=== PATIENT | male | born 1985 | race Caucasian/White ===

== ENCOUNTER 2025-03-02 09:30 | Outpatient (AMB) | payer BC, SELFPAY ==
--- OUTSIDE RECORDS SUMMARY | 2025-03-01 08:30 | XMS_ITS | Encounter Summary ---
Author Organization [facility] Address [address] [place] [address] Care Team Providers Care Deputy Jailer Name Role Phone Ryan Merritt MD Primary Care Provider [phone] Reason for Visit * Reason Comments Consult Pain of the cervical spine Encounter Details Date Type Department Care Team (Latest Contact Info) Description 03/01/2025 8:30 AM EDT Office Visit [facility] Orthopedic Surgery [address] [address] Joe Hinkle MD [address] [place] [address] Cervical radiculopathy (Primary Dx) Social History Tobacco Use Types Packs/Day Years Used Date Smoking Tobacco: Former Cigarettes 1 2014 Passive Smoke Exposure: Past Smokeless Tobacco: Never Alcohol Use Standard Drinks/Week Comments Yes 1 (1 standard drink = 0.6 oz pur e alcohol) 1 drink per week at the most AUDIT-C Answer Date Recorded Q1: How often do you have a drink containing alc ohol? Monthly or less 03/13/2021 Q2: How many drinks containi ng alcohol do you have on a typical day when you are drinking? 1 or 2 03/13/2021 Frequency of Binge Drinking Not on file 02/21 PHQ-2 Answer Date Recorded Patient Health Questionnaire-2 Score 1 05/18/2024 PHQ-9 Answer Date Recorded PHQ-9 Score 1 05/18/2024 Intimate Partner Violence Answer Date R ecorded Fear of Current or Ex-Partner Not on file Emotionally Abused Not on file 02/02/2023 Physically Abused Not on file 02/02/2023 Sexually Abused Not on file 02/02/2023 Feel Safe at Home Not on file 02/02/2023 Sex and Gender Information Value Date Recorded Sex Assigned at Male 06/03/2021 8:41 AM EST Legal Sex Male 11:16 PM EDT Gender Identity Male 06/03/2021 8:41 AM EST Sexual Orientation Straight 06/03/2021 8: 41 AM EST Occupation Industry Job Start Date Job End Date 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 Clarifications and additional information below. History of Present Illness (provider obtained) The patient presents for evaluation of right arm pain. Right Arm Pain - He reports experiencing pain in his right arm, which he believes originates from his neck. - The discomfort varies from a dull ache to a tingling sensation that intensifies over time, eventually manifesting as a burning sensation and complete numbness. - He also experiences trigger finger and significant pain in the right pectoral and trapezius muscles. - The intensity of the pain fluctuates, sometimes reaching excruciating levels. - The onset of these symptoms was on 01/05/2025, following a work trip where he suspects he may have slept awkwardly on his neck, leading to stiffness that progressively worsened. - He has not yet tried injectable steroids. - He has been managing the pain with gabapentin 300 mg three times daily and Motrin for the past 7 weeks, but without significant relief. - He is concerned about the long-term use of Motrin twice daily and is seeking alternative pain management options. Previous Treatments - He has attempted various treatments including acupuncture, physical therapy, managed care liaison, and the application of ice and heat. - He has also tried cervical traction devices and continues to see a chiropractor weekly. - He recalls a similar episode of neck pain in 2023 and another instance in 2018 when his hands would lock up during work, causing severe pain. - He notes that his condition seems to have progressively worsened over time. He is not currently taking any blood thinners. 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 Objective There were no vitals filed for this visit. Estimated body mass index is 34.3 kg/m?? as calculated from the following: Height as of 05/18/24: 5' 7 (1.702 m). Weight as of 01/17/25: 219 lb (99.3 kg). Wt Readings from Last 3 Encounters: 01/17/25 219 lb (99.3 kg) 11/09/24 220 lb 8 oz (100 kg) 05/18/24 219 lb 12.8 oz (99.7 kg) Physical Exam General Appearance: Well-nourished, no acute distress Psych: Normal Affect Neurological: Musculoskeletal: Right arm: Normal strength Spine: Data Reviewed Data Reviewed (tests, documents, or independent historians) Imaging - MRI of the neck: Narrowing at C6-7, right greater than left. - X-ray of the neck: Disc degeneration at C6-7. Images reviewed personally. Cervical x-ray is essentially normal with a little bit of generative disc disease. MRI done at [facility] shows bilateral foraminal stenosis at C6-7 I would say is moderate to severe. The remainder of his spine looks reasonably good Lab Results Component Value Date A1C 4.8 02/16/2023 Diagnoses & Orders ICD-10-CM 1. Cervical radiculopathy M54.12 REQUEST FOR PHYSIATRY PROCEDURE (FOR PHYSIATRY ONLY) Assessment & Plan 1. Cervical radiculopathy: - Symptoms align with MRI findings, indicating cervical radiculopathy at C6-7, with right-sided impingement greater than left - Various treatments tried without significant relief: acupuncture, physical therapy, managed care liaison, ice, heat, gabapentin, NSAIDs - Three treatment options discussed: conservative management, steroid injection, surgical intervention (ACDF) versus disc replacement. I told him I typically do an anterior cervical discectomy and fusions. - Patient prefers to avoid surgery if possible - Steroid injection will be arranged to see if it provides relief - If no improvement within 3 weeks post-injection, surgery will be considered - Cervical traction devices can continue to be used - Heavy lifting should be avoided for 8 weeks post-surgery if necessary - Increasing gabapentin dosage in consultation with primary care provider discussed - Recovery process explained: return to work in about 3 weeks, resume gym activities with light weights after 4-6 weeks, avoid upper extremity exercises for 6 weeks Future Appointments Date Time Provider Department Phone 09/21/25 8:15 AM Carolyn Stearns NP [address] [facility] [phone] * Ruby Marin - 03/01/2025 8:30 AM EDT Rooming Tasks AI Scribe Use Patient Consent: Patient CONSENTS to be recorded by the AI Scribe system. Piano Teacher not necessary for this visit. No exam or procedure involving the breast, genital or rectal area is anticipated. Chief Complaint 39 y.o. male presents with: Consult Pain of the cervical spine documented in this encounter Plan of Treatment Upcoming Encounters Date Type Department Care Team (Latest Contact Info) Description 09/21/2025 8:15 AM EDT CPE - Comprehensive Physical Exam [address] [facility] [address] [place] [id number] Carolyn Stearns NP [address] [place] [address] cpe documented as of this encounter Goals Goal Patient Goal Type Associated Problems Recent Progress Patient-Stated? Author Quit smoking / using tobacco Lifestyle Kandy Graham Note: Smoking can cause cancer, heart attacks, hardening of the arteries, bronchitis, emphysema, cough, shortness of breath, wrinkles, and premature aging and premature births. Some benefits of quitting smoking begin right away. Your risk of heart disease begins to decrease as soon as you quit. Your general health may also start to improve immediately because you are not irritating your lungs and more oxygen gets to your body organs. Your blood circulation is likely to get better. Other benefits may include fewer colds and lung infections as well as reduced risk of high blood pressure, stroke, and cancer. Interested in quitting smoking? Discuss medication options with your provider or contact the Quit To Win program at . Any insurance accepted. Quit smoking resources-http://[email or web address] documented as of this encounter Visit Diagnoses Diagnosis Cervical radiculopathy- Primary Brachial neuritis or radiculitis nos documented in this encounter Care Teams Deputy Jailer Relationship Specialty Start Date End Date Ryan Merritt MD [address] [place] [address] PCP - General 02/11/25 documented as of this encounter
--- NOTE | 2025-03-02 09:59 | HO.SPINEOV ---
Intake Visit Reasons: neck pain radiating to arm Intake Note: Mr. Macias is here today c/o neck pain that radiates to the right arm and upper back. Environmental Health Safety Manager Required: No Allergies No Known Allergies Allergy (Verified 03/02/25 10:04) Assessment & Plan Assessment & Plan (1) Cervical radiculopathy: Code(s): M54.12 - Radiculopathy, cervical region Category: Medical Plan Isaiah is a pleasant 39-year-old male who is self-referred to our office for neck pain and shooting pain into his right upper extremity. He reports this 1st began back in 2019, but was fairly manageable until about 7-8 weeks ago and he states that his pain began to severely worsen. He denies any known inciting incident. When describing the pain he states that it starts in his posterior neck shoots in his right shoulder down the dorsal surface of his right arm terminating in his hand. He states that the pain in the past has sharp down into his right pinky, however today stating that primarily is affecting his right index finger. He describes the pain as a zapping sensation that will burn all the way down his arm many times throughout the day. He actually can incite this pain by turning his head to the right-hand side in moving his arm in his in a certain motion. He reports the pain is now to the point where his severely debilitating him in affecting his ADLs significantly. He is unable to sleep through the night and wakes up multiple times in pain. He is restricting when he is able to do for meaningful activities. He is no longer able to go to the gym or exercise as a result of the pain. He states that simple activities like driving or using his mouse at the computer while working will exacerbate his pain. He denies any issues with dexterity, balance, or bowel/bladder incontinence. He is currently completing a full 8 weeks of physical therapy. He has been to the chiropractor and attempted acupuncture for this issue, however these therapies without provided longstanding relief. He has attempted a plethora of oyjc-wum-yktpoyl medications, patches, and creams without significant symptom relief. In fact he has taken ibuprofen daily for the past 7-8 weeks in an effort to mitigate the pain. He is currently prescribed gabapentin to help mitigate some of his symptoms. PMH: The patient denies any current medical diagnoses or previous history of surgeries. Social hx: The patient does not smoke, reports no substance use. Medications: Gabapentin, ibuprofen. Allergies: NKDA. Physical exam: The patient has 4/5 strength with right-sided triceps testing. The rest of his upper and lower extremity strength is 5/5. He ambulates well with a non spastic and nonantalgic gait. He is able to rise from a seated position without difficulty and gets up onto the examination table without issue. He reports no sensational deficits to light touch during examination. His reflexes are 2+ intact. (-) clonus, (-) Brooke's, (-) bilateral straight leg raise. Imaging review: MRI of the cervical spine completed at outside hospital shows moderate central canal and severe right-sided foraminal stenosis at C6-7. There is also mild-moderate left-sided foraminal stenosis at this level. There appears to be a caudally migrated posterior disc herniation. Impression: Isaiah is a pleasant 39-year-old male who comes in today for evaluation of neck pain and shooting pain into his right upper extremity. This has been ongoing for many years, but has significantly exacerbated over the course of the last 7-8 weeks. I believe his pain is likely being caused by the severe right-sided foraminal stenosis seen at C6-7. He reported that he was previously evaluated by an orthopedic surgeon for this issue, who recommended cervical spine fusion at this level. I believe that due to the patient's age he would be a good candidate for artificial disc at C6-7 to avoid fusion. The patient reports that the orthopedic surgeon who saw him previously already has ordered a series of injections for his neck. I encouraged him to follow through with these, and attempt to obtain symptom relief. He will come and see us again in the office if the injections do not provide lasting relief. Thank you for allowing us to care for your patient. The total time spent with this visit with this patient was 45 minutes reviewing history, physical exam, MRI imaging review, and implementation of treatment plan or further diagnostic testing Michael Mar MD,PhD [facility] Coding Level of Care Code New Pt Level 4 (33925) Diagnoses Cervical radiculopathy M54.12
--- OUTSIDE RECORDS SUMMARY | 2025-03-02 11:03 | XMS_ITS | Encounter Summary ---
Author Organization [facility] Address [address] [place] [address] Care Team Providers Care Neuropsychology Division Chief Name Role Phone Ryan Merritt MD Primary Care Provider [phone] Encounter Details Date Type Department Care Team (Late st Contact Info) Description 03/02/[address] 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 [facility] [address] [place] [phone] Carolyn Stearns NP [address] [place] [address] cpe documented as of this encounter Goals [...] at . Any insurance accepted. Quit smoking resources-[email or web address] documented as of this encounter Visit Diagnoses Diagnosis Other hyperlipidemia Impaired fasting glucose Immunity status testing Antibody response examination Need for hepatitis C screening test Special screening examination for other specified viral diseases Need for qayxlns-ectuh-scasqip (MMR) vaccine Need for prophylactic vaccination with cxuooxk-hwpbw-wimijot (MMR) vaccine documented in this encounter Care Teams Neuropsychology Division Chief Relationship Specialty Start Date End Date Ryan Merritt MD [address] [place] [address] PCP - General 02/11/25 documented as of this encounter
--- OUTSIDE RECORDS SUMMARY | 2025-03-02 11:03 | XMS_ITS | Encounter Summary ---
Author Organization [facility] Address [address] [place] [address] Care Team Providers Care Instrument And Controls Technician Name Role Phone Aranza Darling MD Primary Care Provider [phone] Ryan Merritt MD Primary Care Provider [phone] Reason for Visit * Reason Comments Rehab Plan Of Care Order Encounter Details Date Type Department Care Team (Late st Contact Info) Description 09/28/2020 Orders Only [facility] [address] [place] [phone] Vitaliy Limon, PT [address] [place] [address] Social History Tobacco Use Types Packs/Day Years Used Date Smoking Tobacco: Former Cigarettes 1 2014 Smokeless Tobacco: Never Alcohol Use Standard Drinks/Week Comments Yes 1 (1 standard drink = 0.6 oz pur e alcohol) AUDIT-C Answer Date Recorded Frequency of Alcohol Consumption Monthly or less 08/01/2019 Average Number of Drinks 1 or 2 020 Frequency of Binge Drinking Not on file 07/23 PHQ-2 Answer Date Recorded PHQ-2 Score 2 08/01/2019 Sex and Gender Information Value Date Recorded Sex Assigned at Male 06/03/2021 8:41 AM EST Legal Sex Male 11:16 PM EDT Gender Identity Male 06/03/2021 8:41 AM EST Sexual Orientation Straight 06/03/2021 8: 41 AM EST Occupation Industry Job Start Date Job End Date 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 No / Unsure 09/25/2020 4:00 PM EDT documented as of this encounter Plan of Treatment Upcoming Encounters Date Type Department Care Team (Latest Contact Info) Description 09/21/2025 8:15 AM EDT CPE - Comprehensive Physical Exam [facility] [address] [place] [address] Carolyn Stearns NP [address] [place] [address] cpe documented as of this encounter Goals [...] at . Any insurance accepted. Quit smoking resources-[email or web address] documented as of this encounter Visit Diagnoses Diagnosis Sprain of anterior talofibular ligament of right ankle, subsequent encounter Chronic pain of right ankle documented in this encounter Care Teams Instrument And Controls Technician Relationship Specialty Start Date End Date Aranza Darling MD [address] [place] [address] PCP - General Family Medicine 01/22/18 02/10/25 Ryan Merritt MD [address] [place] [address] PCP - General 02/11/25 documented as of this encounter
--- OUTSIDE RECORDS SUMMARY | 2025-03-02 11:03 | XMS_ITS | Encounter Summary ---
Author Organization [facility] Address [address] [place] [address] Care Team Providers Care Crisis Intervention Specialist Name Role Phone Aranza Darling MD Primary Care Provider [phone] Ryan Merritt MD Primary Care Provider Encounter Details Date Type Department Care Team (Late st Contact Info) Description 07/25/[address] 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 Herzio message sent. documented in this encounter Plan of Treatment Upcoming Encounters Date Type Department Care Team (Latest Contact Info) Description 09/21/2025 8:15 AM EDT CPE - Comprehensive Physical Exam [address] [facility] [address] [place] [phone] Carolyn Stearns NP [address] [place] [address] cpe documented as of this encounter Goals [...] at . Any insurance accepted. Quit smoking resources-[email or web address] documented as of this encounter Procedures * Due to [place] law, this organization might not be sharing negative HIV tests. Procedure Name Priority Date/Time Associated Diagnosis Comments CBC INCLUDES DIFFERENTIAL AND PLATELET COUNT Routine 07/25/2019 12:04 PM EST Syncope, unspecified syncope type VENIPUNCTURE Routine 07/25/2019 12:04 PM EST Syncope, unspecified syncope type documented in this encounter Results * Due to [place] [employer]GC law, this organization might not be sharing negative HIV tests. * CBC INCLUDES DIFFERENTIAL AND PLATELET COUNT (07/25/2019 12:04 PM EST) WBC 7.5 3.8 - 10.8 Thousand/u L [facility] RBC 4.71 4.20 - 5.80 Million/uL [facility] Hemoglobin 14.3 13.2 - 17.1 g/dL [facility] Hematocrit 41.2 38.5 - 50.0 % [facility] MCV 87.5 80.0 - 100.0 fL [facility] MCH 30.4 27.0 - 33.0 pg [facility] MCHC 34.7 32.0 - 36.0 g/dL [facility] RDW 12.6 11.0 - 15.0 % [facility] PLT 233 140 - 400 Thousand/u L [facility] MPV 9.5 7.5 - 12.5 fL [facility] Neutrophils # 4778 1500 - 7800 cells/uL [facility] Lymphocytes # 2123 850 - 3900 cells/uL [facility] Monocytes # 548 200 - 950 cells/uL [facility] Eosinophils # 23 15 - 500 cells/uL [facility] Basophils # 30 0 - 200 cells/uL [facility] Neutrophils % 63.7 % [facility] Lymphocytes % 28.3 % [facility] Monocytes % 7.3 % [facility] Eosinophils % 0.3 % [facility] Basophils % 0.4 % [facility] 07/25/2019 12:0 4 PM EST 07/25/2019 10:14 PM EST Narrative Resulting Agency Comment [id number] us Aranza Darling MD LAB SAME DAY RESULT Final Result Performing Organization Address City/State/[facility] Co de Phone Number [facility] [address] [place] [address] * BASIC METABOLIC PANEL WITH (GFR) (07/25/2019 12:04 PM EST) Pathologist [facility] Glucose 82 65 - 99 mg/dL [facility] Comment:[facility] Urea Nitrogen Blood (BUN) 12 7 - 25 mg/dL [facility] Creatinine 0.89 0.60 - 1.35 mg/dL [facility] EGFR 111 > OR = 60 mL/min/1. 73m2 [facility] GFR () 128 > OR = 60 mL/min/1. 73m2 [facility] BUN/Creatinine Ratio NOT APPLICABLE 6 - 22 (calc) [facility] Sodium 140 135 - 146 mmol/L [facility] Potassium 4.2 3.5 - 5.3 mmol/L [facility] Chloride 105 98 - 110 mmol/L [facility] Carbon dioxide 28 20 - 32 mmol/L [facility] Calcium 9.1 8.6 - 10.3 mg/dL [facility] 07/25/2019 12:0 4 PM EST 07/25/2019 10:14 PM EST Narrative [facility] - 07/26/2019 3:21 AM EST Please note that this estimated GFR does not include an adjustment for the patient's height or weight, and can therefore, be viewed as reliable only for patients with heights between 60 and 72 . More precise quantification using a 24-hour urine sample or height-based algorithm is recommended for patients outside of this range of height and for those individuals with more precise needs for GFR calculation. Resulting Agency Comment [id number] us Aranza Darling MD LABORATORY Final Resu lt [facility] [address] [place] [address] documented in this encounter Visit Diagnoses Diagnosis Syncope, unspecified syncope type documented in this encounter Care Teams Crisis Intervention Specialist Relationship Specialty Start Date End Date Aranza Darling MD [address] [place] [address] PCP - General Family Medicine 01/22/18 02/10/25 Ryan Merritt MD [address] [place] [address] PCP - General 02/11/25 documented as of this encounter
--- OUTSIDE RECORDS SUMMARY | 2025-03-02 11:03 | XMS_ITS | Clinical Summary ---
Author Organization [facility] Address [address] [place] [address] Care Team Providers Care Shingle Catcher Name Role Phone Ryan Merritt MD Primary Care Provider [phone] Allergies No known active allergies Medications * This document contains information received from the source organization and may not represent a complete record from that organization. Multiple Vitamin (MULTIVITAMINS) Cap Take 1 capsule by mouth daily. Active [place]-3 Fatty Acids (FISH OIL) 1000 MG Cap Take 800 mg by mouth daily. Active Bacillus Coagulans-Inuli n (Probiotic) 1-250 BILLION-MG Cap Take by mouth 1 (one) time each day. Active Albuterol (PROVENTIL HFA;VENTOLIN HFA) 90 mcg/ACT inhaler INHALE 2 PUFFS BY MOUTH EVERY 4 HOURS NEEDED FOR SHORTNESS OF BREATH FOR 7 DAYS 06/14/20 24 Active CREATINE MONOHYDRATE OR Take 5 mg by mouth 1 (one) time each day. 06/22/19 24 Active Gabapentin (NEURONTIN) 300 MG capsuleIndicati ons:Neck pain Take one capsule (300 mg total) by mouth 3 (three) times a day. 90 capsule 1 02/28/20 25 Active predniSONE (DELTASONE) 10 MG tabletIndicatio ns:Acute strain of neck muscle, subsequent encounter Take four tablets (40 mg total) by mouth 1 (one) time each day for 2 days, THEN three tablets (30 mg total) 1 (one) time each day for 2 days, THEN two tablets (20 mg total) 1 (one) time each day for 2 days, THEN one tablet (10 mg total) 1 (one) time each day for 2 days. 20 tablet 01/18/20 25 025 Baclofen (LIORESAL) 20 MG tabletIndicatio ns:Acute strain of neck muscle, subsequent encounter Take one tablet (20 mg total) by mouth 2 (two) times a day. 60 tablet 01/18/20 25 025 Discontinued Gabapentin (NEURONTIN) 300 MG capsuleIndicati ons:Neck pain Take one capsule (300 mg total) by mouth every night. 30 capsule 1 02/01/20 25 025 Discontinued(Re order (No Cancel Rx)) Baclofen (LIORESAL) 20 MG tabletIndicatio ns:Acute strain of neck muscle, subsequent encounter TAKE ONE TABLET (20 MG TOTAL) BY MOUTH 2 (TWO) TIMES A DAY 60 tablet 02/15/20 25 025 Discontinued(Al ternate therapy) Active Problems Problem Noted Date Diagnosed Date Hx of colonic polyps 10/03/2024 Overview (10/03/2024): Colon 08/2024, per Dr. Crowe recommends repeat colon in 5 years Posterior tibial tendinitis of right lower extre mity 08/17/2024 Impaired fasting glucose 05/18/2024 Overview (05/18/2024): Diet low in simple sugars and carbohydrates advised. He agrees to update labs. Lab Results Component Value Date GLUCOSE 102 (H) 02/16/2023 GLUCOSE 104 (H) 02/04/2023 GLUCOSE 118 (H) 02/03/2023 Class 1 obesity with serious comorbidity and body mass index (BMI) of 34.0 to 34.9 in adult 05/18/2024 Overview (05/18/2024): Patient is very muscular, so BMI may be an accurate. Low-fat diet, regular cardiovascular exercise encouraged. Family history of colonic polyps 05/18/2024 Overview (05/18/2024): Mother found to have colon polyps age 66. Family history of colon cancer 05/18/2024 Overview (05/18/2024): Paternal grandmother of colon cancer in her early 50s. History of palpitations 02/03/2023 Overview (05/18/2024): Denies current palpitations. Previous work-up benign: TTE 02/11/2023 showed normal EF, trace MR, TR. 30-day cardiac event monitor 03/20/2023 was normal. ETT 02/20/2023 was negative Anxiety 04/30/2020 Overview (05/18/2024): Anxiety has improved with participation in [facility] [place] program and regular exercise. He declines need for therapist or medications. History of dysplastic nevus 08/01/2019 Overview (05/18/2024): Follows with [facility] dermatology every 12 months for skin surveillance. Cervical radiculopathy 02/24/2019 Overview (05/18/2024): He is following with orthopedics for cervical radiculopathy, cervical degenerative disc disease. Last visit 08/26/2023 and they discussed epidural steroid injection C7-T1. He reports symptoms have improved and he decided not to get the injection. Other hyperlipidemia 04/22/2018 Overview (05/18/2024): Low-fat diet, exercise, weight loss encouraged. He agrees to update labs. Lab Results Component Value Date CHOLESTEROL 185 02/16/2023 HDL 47 02/16/2023 LDL 119 (H) 02/16/2023 CHOLNONHDL 138 (H) 02/16/2023 TRIGLYCERIDE 86 02/16/2023 Chronic allergic rhinitis due to pollen 04/10/20 17 GERD (gastroesophageal reflux disease) 7 Overview (05/18/2024): Well managed with lifestyle changes, trigger avoidance. Denies current symptoms. Resolved Problems Problem Noted Date Diagnosed Date Resolved Date Dizziness 06/01/2023 05/18/2024 Sprain of anterior talofibul ar ligament of right ankle PT 09/25/2020 04/30/2022 Chronic pain of right ankle PT 09/25/2020 04/30/2022 History of COVID-19 06/04/2020 05/08/20 23 Overview (03/13/2021): 05/2020, no residual symptoms. 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 [facility] [address] [place] [address] Aranza Darling MD 03/01/2025 8:30 AM EDT Office Visit [facility] Orthopedic Surgery [address] [place] [address] [place] [phone] Joe Hinkel MD Cervical radiculopathy (Primary Dx) 02/23/2025 Results Follow-Up [address] [facility] [address] [place] [address] Liv Hunter PA MRI CERVICAL SPINE W/O CONTRAST 02/22/2025 1:15 PM EDT Radiology [facility]. Magnetic Resonance Imaging [address] [place] [address] Neck pain; Cervical radiculopathy 02/13/[address] [facility] [address] [address] Ryan Merritt MD E-prescribing Refill Request 01/17/2025 4:00 PM EDT Office Visit [address] [facility] [address] [place] [address] Liv Hunter PA Acute strain of neck muscle, subsequent encounter (Primary Dx); Other hyperlipidemia 01/16/[address] [facility] [address] [place] [address] Aranza Darling MD Follow Up; Neck Pain 01/16/2025 Telephone [facility] Orthopedic Surgery [address] [place] [address] [address] [place] [address] Nino Bryant NP ER F/U 12/05/2024 10:00 AM EDT Radiology [facility] Ultrasound [address] [place] [address] Neck pain 12/05/2024 Results Follow-Up [address] [facility] [address] [place] [id number] Liv Hunter PA US SOFT TISSUE HEAD AND NECK from Last 3 Months Immunizations Immunization Administration Dates Next Due COVID-19, mRNA (Pfizer Pre F all 2022) Monovalent, 30 mcg/0.3 ml 06/26/2021,11/07/2020,10/09/2020 Influenza (SEASONAL) - 02/20/2018 Influenza,injectable,MDCK, Prsrv Fr,Quad 023,04/30/2022,04/12/2019 Influenza,injectable,MDCK,quad,preservative 02/2020 Influenza,injectable,quad,preservative 7 Tdap 04/22/2018 Tdap(Adacel) 2006 Varicella 1997 Family History Medical History Relation Name Comments Hypertension Brother Other Daughter delayed develop mental milestones, hypotonia Arthritis/Joint disorder Father ? t ype ? Hypertension Father No Known or Significant Medical History Maternal grandfather Cancer - Lung Maternal grandmother smoker Headache/Migraine Maternal grandmother Cancer - Breast Mother Cancer - Melanoma Mother onset in h er 50s Colon Polyp Mother Diabetes Mother IBS Mother Dementia Paternal grandfather Cancer - Colon Paternal grandmother in her early 50s No Known or Significant Medical History Son Cancer - Prostate Neg Hx Relation Name Status Comments Brother Alive Daughter Alive Father Alive Maternal grandfather Maternal grandmother Mother Alive Paternal grandfather Paternal grandmother Son Alive Social History Tobacco Use Types Packs/Day Years Used Date Smoking Tobacco: Former Cigarettes 1 12 2 - 2014 Passive Smoke Exposure: Past Smokeless Tobacco: Never Tobacco Cessation:Counseling Given: Not Answered Alcohol Use Standard Drinks/Week Comments Yes 1 [...] 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[employer] Not on georgina e Not on file Not on file Last Filed Vital Signs Vital Sign Reading Time Taken Comments Blood Pressure 122/76 01/17/2025 3:53 PM EDT Pulse 76 01/17/2025 3:53 PM EDT Temperature 37 C (98.6 F) 10/11/2018 4:26 PM EDT Respiratory Rate - - Oxygen Saturation 94% 05/29/2023 4:06 PM EST Inhaled Oxygen Concentration - - Weight 99.3 kg (219 lb) 01/17/2025 3:53 PM EDT Height 170.2 cm (5' 7 ) 05/18/2024 3:42 PM EST Body Mass Index 34.3 05/18/2024 3:42 PM EST Plan of Treatment Upcoming Encounters Date Type Department Care Team (Latest Contact Info) Description 09/21/2025 8:15 AM EDT CPE - Comprehensive Physical Exam [facility] [address] [place] [address] Carolyn Stearns, HALEY [address] [place] [address] cpe Health Maintenance Due Date Last Done Comments Hepatitis C Screening 1985 COVID-19 Vaccine ( season) 2025 06/26/2021, 11/07/2020, 10/09/2020 Influenza (#1) 2025 05/08/2023, 02/2022, 04/30/2020, Additional history exists DTaP/Tdap/Td (3 - Td or Tdap) 04/22/2028 04/22/2018, 2006 Colonoscopy 09/16/2029 09/16/2024 Zoster (Shingrix) (1 of 2) 2034 1997 Eye/Retina Exam Discontinued 08/28/2020 Tonometry Discontinued 08/28/2020 Chest Imaging Discontinued 02/03/2023, 01/20, 01/26/2019 LDL Cholesterol Discontinued 02/16/2023, 12/2020, 05/31/2018 EKG Discontinued 05/29/2023, 06/2022, 02/04/2023, Additional history exists Physical Discontinued 05/18/2024, 04/22, 04/30/2022, Additional history exists HPV Vaccine (No Doses Required) Completed Hep A Aged Out No longer eligi ble based on patient's age to complete this topic Hib Aged Out No longer eligi ble based on patient's age to complete this topic Meningococcal ACWY Aged Out No longer eligible based on patient's age to complete this topic Pneumococcal Aged Out No longer eligi ble based on patient's age to complete this topic Goals Goal Patient Goal Type Associated Problems Recent Progress Patient-Stated? Author Quit smoking / using tobacco Lifestyle No Kandy Cao Note: Smoking can cause cancer, heart attacks, [...] at . Any insurance accepted. Quit smoking resources-http://getFound.ie.org Procedures * Due to [place] Kaboodle law, this organization might not be sharing negative HIV tests. Procedure Name Priority Date/Time Associated Diagnosis Comments MRI CERVICAL SPINE W/O CONTRAST Routine 02/22/2025 2:01 PM EDT Neck pain Cervical radiculopathy US SOFT TISSUE HEAD AND NECK Routine 12/05/2024 10:11 AM EDT Neck pain COLONOSCOPY 09/16/2024 EKG-USE ONLY IN READYMED/OCC MED/CARDIO Routine 05/29/2023 5:04 PM EST Palpitations LIPID PANEL WITH REFLEX TO DIRECT LDL Routine 02/16/2023 7:11 AM EDT COMPREHENSIVE EYE EXAM 08/28/2020 XRAY CHEST, 2 VIEWS, PA & LATERAL (DX: DYSPNEA R06.00/ 786.09) FC Routine 01/26/2019 4:44 PM EDT from Last 3 Months or Most Recently Relevant to Health Maintenance Results * Due to [place] Kaboodle law, this organization might not be sharing negative HIV tests. * MRI CERVICAL SPINE W/O CONTRAST (02/22/2025 2:01 PM EDT) Anatomical Region Laterality Modality Spine Magnetic Resonan ce Narrative 02/23/2025 12:55 PM EDT Patient History: Neck pain with radiation down the right arm. He reports increasing numbness, tingling and weakness despite conservative management plan with anti-inflammatories, gabapentin, chiropractic treatment. Loss of reflexes RUE CONTRAST: MR cervical spine without gadolinium Comparison: MR/CA - CERVICAL SPINE WO CONTRAST MRI - 12/08/18 15:51 EDT Findings: Cervical alignment is normal. Vertebral heights are maintained. No pathologic marrow replacing lesions. Spinal cord signal intensity is uniform. C2-C3:No disc herniation or stenosis. C3-C4:No disc herniation or stenosis. C4-C5:Shallow central disc protrusion. No significant stenosis. C5-C6:Central disc protrusion deforming the ventral thecal sac. Foramina are patent. C6-C7:Mild disc bulging deforming the ventral thecal sac. There is uncovertebral joint osteophyte with moderate to severe bilateral foraminal stenosis. C7-T1:Shallow central disc protrusion. Foramina are patent. Paraspinal soft tissues appear normal. IMPRESSION: 1. Central disc protrusion at C5-C6 deforming the ventral thecal sac. 2. Moderate to severe bilateral foraminal stenosis at C6-C7 due to uncovertebral joint osteophyte and mild disc bulging. 3. Shallow central disc protrusions at C4-C5 and C7-T1. Procedure Note Lasha Ontiveros MD - 02/23/2025 Patient History: Neck pain with radiation down the right arm. He reportsincreasing numbness, tingling and weakness despite conservative managementplan with anti-inflammatories, gabapentin, chiropractic treatment. [place] reflexes RUE CONTRAST: MR cervical spine without gadolinium Comparison: MR/CA - CERVICAL SPINE WO CONTRAST MRI - 12/08/18 15:51 EDT Findings: Cervical alignment is normal. Vertebral heights are maintained. No pathologic marrow replacing lesions. Spinal cord signal intensity is uniform. C2-C3:No disc herniation or stenosis. C3-C4:No disc herniation or stenosis. C4-C5:Shallow central disc protrusion. No significant stenosis. C5-C6:Central disc protrusion deforming the ventral thecal sac. Foraminaare patent. C6-C7:Mild disc bulging deforming the ventral thecal sac. There isuncovertebral joint osteophyte with moderate to severe bilateral foraminalstenosis. C7-T1:Shallow central disc protrusion. Foramina are patent. Paraspinal soft tissues appear normal. IMPRESSION: 1. Central disc protrusion at C5-C6 deforming the ventral thecal sac. 2. Moderate to severe bilateral foraminal stenosis at C6-C7 due touncovertebral joint osteophyte and mild disc bulging. 3. Shallow central disc protrusions at C4-C5 and C7-T1. Aranza Darling MD IMG MR NO CONTRAST ORDERAB LES Final Result * US SOFT TISSUE HEAD AND NECK (12/05/2024 10:11 AM EDT) Anatomical Region Laterality Modality HEAD/BRAIN Ultrasound Narrative 12/05/2024 2:23 PM EDT Patient History: Palpable tender lump midline at base of C-spine. CONTRAST: US neck Comparison: None Findings: There is no discrete lesion identified. There is some thickening of the subcutaneous fat at the area of concern but no encapsulated lesion. No fluid collection. IMPRESSION: 1. No discrete lesion at the area of concern as detailed. Procedure Note Lasha Ontiveros MD - 12/05/2024 Patient History: Palpable tender lump midline at base of C-spine. CONTRAST: US neck Comparison: None Findings: There is no discrete lesion identified. There is some thickening of thesubcutaneous fat at the area of concern but no encapsulated lesion. Nofluid collection. IMPRESSION: 1. No discrete lesion at the area of concern as detailed. Aranza Darling MD IMG US ORDERABLES Final Re sult * COLONOSCOPY (09/16/2024) Denver Crowe MD PROCEDURES Final Result * EKG-USE ONLY IN READYMED/OCC MED/CARDIO (05/29/2023 5:04 PM EST) VENTRICULAR RATE 66 BPM MUS E EKG SYSTEM ATRIAL RATE 66 BPM MUSE EKG SYSTEM P-R INTERVAL 154 ms MUSE EK G SYSTEM QRS DURATION 104 ms MUSE EK G SYSTEM QT 396 ms MUSE EKG SYSTEM QTC 415 ms MUSE EKG SYSTEM P AXIS 50 degrees MUSE EKG SYSTEM R AXIS 47 degrees MUSE EKG SYSTEM T AXIS 42 degrees MUSE EKG SYSTEM EKG INTERPRETATION Normal sinus rhythm Normal ECG Confirmed by REX MONZON ([id number]), society editor NEHEMIAH SCHWARTZ ([id number]) on 06/02/2023 7:28:26 AM MUSE EKG SYSTEM 05/29/2023 5:04 PM EST 06/02/2023 7:28 AM EST Rex Monzon DO CARDIOVASCULAR-WITH INBSKT RTG Final Result MUSE EKG SYSTEM * (ABNORMAL) LIPID PANEL WITH REFLEX TO DIRECT LDL (02/16/2023 7:11 AM EDT) Cholesterol 185 <200 mg/dL [facility] HDL Cholesterol 47 > OR = 40 mg/dL [facility] Triglyceride 86 <150 mg/dL [facility] LDL Cholesterol 119(H) mg/dL (calc) [facility] Comment: Reference range: <100 Desirable range <100 mg/dL for primary prevention; <70 mg/dL for patients with CHD or diabetic patients with > or = 2 CHD risk factors. LDL-C is now calculated using the All-Jimmie calculation, which is a validated novel method providing better accuracy than the Friedewald equation in the estimation of LDL-C. All MUNOZ et al. NIURKA. 2013;310(19): 2795-4807 (http://education.[employer].Blossom/faq/EFR186) CHOL/HDL Ratio 3.9 <5.0 (calc) [facility] Cholesterol Non-HDL 138(H) <130 mg/dL (calc) [facility] Comment: For patients with diabetes plus 1 major ASCVD risk factor, treating to a non-HDL-C goal of <100 mg/dL (LDL-C of <70 mg/dL) is considered a therapeutic option. 02/16/2023 7:11 AM EDT 02/16/2023 4:46 PM EDT us Aranza Darling MD LABORATORY Final Resu lt [facility] [address] [place] [address] * COMPREHENSIVE EYE EXAM (08/28/2020) Silvia Krishna OD MINOR PROCEDURE Final Result * XRAY CHEST, 2 VIEWS, PA & LATERAL (DX: DYSPNEA R06.00/ 786.09) FC (01/26/2019 4:44 PM EDT) Anatomical Region Laterality Modality CHEST Radiographic Shital ging 01/28/2019 7:25 AM EDT Narrative 01/28/2019 7:25 AM EDT EXAM: CHEST X-RAY, PA AND LATERAL: COMPARISON: None FINDINGS: The cardiomediastinal silhouette is unremarkable. The lungs are well aerated and clear. No mass, infiltrate or atelectasis is apparent. No pleural effusion is suspected. No acute abnormality of the osseous structures. 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 IMPRESSION: No active cardiopulmonary disease demonstrated. Procedure Note Brett Krishna MD - 01/28/2019 EXAM: CHEST X-RAY, PA AND LATERAL: COMPARISON: None FINDINGS: The cardiomediastinal silhouette is unremarkable. The lungs are well aerated and clear. No mass, infiltrate or atelectasisis apparent. No pleural effusion is suspected. No acute abnormality of the osseous structures. Congenital fusion of theright first and second ribs incidentally noted. IMPRESSION: No active cardiopulmonary disease demonstrated. us Aranza Darling MD IMG XRAY NO CONTRAST ORDER BRIAN Final Result from Last 3 Months or Most Recently Relevant to Health Maintenance Insurance [facility] Care Teams Shingle Catcher Relationship Specialty Start Date End Date Ryan Merritt MD [address] [place] [address] PCP - General 02/11/25
--- OUTSIDE RECORDS SUMMARY | 2025-03-02 11:03 | XMS_ITS | Encounter Summary ---
Author Organization [facility] Address [address] [place] [address] Care Team Providers Care Senior Vice President Name Role Phone Aranza Darling MD Primary Care Provider [phone] Ryan Merritt MD Primary Care Provider [phone] Reason for Visit * Reason Comments Medical Record Encounter Details Date Type Department Care Team ([facility] st Contact Info) Description 09/13/2020 Abstract [facility] Medical Records [address] [place] [id number] Unknown Social History Tobacco Use Types Packs/Day Years Used Date Smoking Tobacco: Former Cigarettes 2014 Smokeless Tobacco: Never Alcohol Use Standard [...] 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 No / Unsure 09/03/2020 4:00 PM EDT documented as of this encounter Plan of Treatment Upcoming Encounters Date Type Department Care Team (Latest Contact Info) Description 09/21/2025 8:15 AM EDT CPE - Comprehensive Physical Exam [address] [address] [place] [address] Carolyn Stearns, H[address]Y [address] [place] [address] cpe documented as of this encounter Goals [...] at . Any insurance accepted. Quit smoking resources-http://[email or web address] documented as of this encounter Visit Diagnoses Not on filedocumented in this encounter Care Teams Senior Vice President Relationship Specialty Start Date End Date Aranza Darling MD [address] [place] [address] PCP - General Family Medicine 01/22/18 02/10/25 Ryan Merritt MD [address] [place] [address] PCP - General 02/11/25 documented as of this encounter
--- OUTSIDE RECORDS SUMMARY | 2025-03-02 11:03 | XMS_ITS | Clinical Summary ---
Author Organization [facility] Address [address] [place] [id number] Care Team Providers Care Planning Director Name Role Phone Unavailable Primary Care Provider Unavailabl e Social History Tobacco Use Types Packs/Day Years Used Date Smoking Tobacco: Never Assessed Sex and Gender Information Value Date Recorded Sex Assigned at Not on file Legal Sex Male 11:41 AM EDT Gender Identity Not on file Sexual Orientation Not on file Last Filed Vital Signs Vital Sign Reading Time Taken Comments Blood Pressure 124/80 12/25/2016 7:18 AM EDT Pulse - - Temperature - - Respiratory Rate - - Oxygen Saturation - - Inhaled Oxygen Concentration - - Weight 86.9 kg (191 lb 9.6 oz) 12/25/2016 7:18 A M EDT Height 170.2 cm (5' 7 ) 12/25/2016 7:18 AM EDT Body Mass Index 30.01 12/25/2016 7:18 AM EDT Plan of Treatment Not on file
--- OUTSIDE RECORDS SUMMARY | 2025-03-02 11:04 | XMS_ITS | Encounter Summary ---
Author Organization [facility] Address [address] [place] [address] Care Team Providers Care Company Tanker Truck Driver Name Role Phone Aranza Darling MD Primary Care Provider [phone] Ryan Merritt MD Primary Care Provider [phone] Encounter Details Date Type Department Care Team (Late st Contact Info) Description 02/24/[address] 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 [facility] [address] [place] [address] Carolyn Stearns NP [address] [place] [address] cpe documented as of this encounter Goals [...] at . Any insurance accepted. Quit smoking resources-http://LifePics.org documented as of this encounter Visit Diagnoses Diagnosis Hand numbness Disturbance of skin sensation documented in this encounter Care Teams Company Tanker Truck Driver Relationship Specialty Start Date End Date Aranza Darling MD [address] [place] [address] PCP - General Family Medicine 01/22/18 02/10/25 Ryan Merritt MD [address] [place] [address] PCP - General 02/11/25 documented as of this encounter
--- OUTSIDE RECORDS SUMMARY | 2025-03-02 11:04 | XMS_ITS | Encounter Summary ---
Author Organization [facility] Address [address] [place] [address] Care Team Providers Care Gravel Roofer Name Role Phone Aranza Darling MD Primary Care Provider [phone] Ryan Merritt MD Primary Care Provider [phone] Reason for Visit * Reason Comments Cancellation Encounter Details Date Type Department Care Team (Late st Contact Info) Description 11/25/2018 Telephone CALL CENTER [address] [address] Aranza Darling MD [address] [place] [address] Cancellation Social History Tobacco Use Types Packs/Day Years Used Date Smoking Tobacco: Former Cigarettes 1 2 - 2014 Smokeless Tobacco: Never Alcohol Use Standard [...] 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 I get an error message that states it is the wrong encounter type or department. I am unable to do orders only encounters. Please send to me as a medication authorization task and I will authorize. Thanks. * Telephone Encounter - Alyson Arciniega CMA - 11/25/2018 4:18 PM EDT Please approve script * Telephone Encounter - Vitaliy Power - 11/25/2018 12:19 PM EDT [place]- can you please assist in getting this medication to pharmacy Patient informed of below. Agrees with recommendations. No further questions or concerns voiced. * Telephone Encounter - Aranza Darling MD - 11/25/2018 12:12 PM EDT Prescription for lorazepam 1 mg 30 to 60 minutes prior to MRI would be a reasonable medication to assist with claustrophobia/anxiety. I have pended this prescription and can sign it if he agrees. However, he will not be able to drive on this medication and will need a ride to and from MRI appointment. Thanks. * Telephone Encounter - Vitaliy Power - 11/25/2018 10:52 AM EDT Aranza Darling MD- please advise Patient does have MRI scheduled on 12/08/18. Reports he scheduled it this morning. Reports they asked him if he is claustrophobic and he says yes slightly and he thinks he will be anxious during the exam. Patient asking if PCP would recommend anything for his nerves during this test. Says he does not know anything specific that would help him he would like PCP's opinion. * Telephone Encounter - Conrad Millsgradyketurah - 11/25/2018 10:20 AM EDT This is to inform you that this patient did not schedule his appointment for a mri c spine to evaluate for EMG showed evidence of compression in neck at c7/7 nerve root level causing numbness/weakness. We made 2 telephone attempts to schedule this appointment with him directly, including mailing a letter to the patient on 11/25/2018. We informed the patient in the letter to contact your office ifthey would like to have this exam performed at a later time. We will remove your order in Epic on 12/10/18. Please submit a new order if this exam is needed at a future date. Thank you. documented in this encounter Plan of Treatment Upcoming Encounters Date Type Department Care Team (Latest Contact Info) Description 09/21/2025 8:15 AM EDT CPE - Comprehensive Physical Exam [address] [facility] [address] [place] [address] Carolyn Stearns NP [address] [place] [address] cpe documented as of this encounter Goals [...] at . Any insurance accepted. Quit smoking resources-[email or web address] documented as of this encounter Visit Diagnoses Not on filedocumented in this encounter Care Teams Gravel Roofer Relationship Specialty Start Date End Date Aranza Darling MD [address] [place] [address] PCP - General Family Medicine 01/22/18 02/10/25 Ryan Merritt MD [address] [facility] [place] [address] PCP - General 02/11/25 documented as of this encounter
--- OUTSIDE RECORDS SUMMARY | 2025-03-02 11:04 | XMS_ITS | Encounter Summary ---
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 [facility] [address] [place] [phone] Carolyn Stearns NP [address] [place] [address] cpe documented as of this encounter Goals [...] at . Any insurance accepted. Quit smoking resources-[email or web address] documented as of this encounter Visit Diagnoses Diagnosis Ulnar nerve entrapment at elbow, unspecified laterality documented in this encounter Care Teams Business Insurance Agent Relationship Specialty Start Date End Date Aranza Darling MD [address] [place] [address] PCP - General Family Medicine 01/22/18 02/10/25 Ryan Merritt MD [address] [place] [address] PCP - General 02/11/25 documented as of this encounter
--- OUTSIDE RECORDS SUMMARY | 2025-03-02 11:04 | XMS_ITS | Encounter Summary ---
Author Organization [facility] Address [address] [place] [address] Care Team Providers Care Retail Cashier Associate Name Role Phone Aranza Darling MD Primary Care Provider [phone] Ryan Merritt MD Primary Care Provider [phone] Reason for Visit * Reason Comments Vomiting Diarrhea Encounter Details Date Type Department Care Team (Late st Contact Info) Description 08/30/[address] 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 Reports yesterday when he had a bowel movement in the morning it was whitish in color and then ever since then he's been having diarrhea. His upper left abdomen underneath his rib cage is where the most pain is. Says it feels like aconstant ache. Says when he drinks water it makes his nausea worse. States he's been forcing foods down but has no appetite. Denies fever, vomiting, chills. Says he also has had constant back pain for a while but now it is radiating down his legs but worse on his left side. Reports he has not been taking anything OTC for this. Booked with PCP today for evaluation Date Time Provider Department Phone 08/30/18 11:[address] [facility] [phone] * Telephone Encounter - Lexy Willett - 08/30/2018 8:39 AM EDT Pt notes issues with nausea, back pain, and diarrhea since last . He denies using any otc treatments. He notes issues with loss of appetite and heartburn related to these symptoms. documented in this encounter Plan of Treatment Upcoming Encounters Date Type Department Care Team (Latest Contact Info) Description 09/21/2025 8:15 AM EDT CPE - Comprehensive Physical Exam [address] [facility] [address] [place] [address] Carolyn Stearns NP [address] [place] [address] cpe documented as of this encounter Goals [...] at . Any insurance accepted. Quit smoking resources-[email or web address] documented as of this encounter Visit Diagnoses Not on filedocumented in this encounter Care Teams Retail Cashier Associate Relationship Specialty Start Date End Date Aranza Darling MD [address] [facility] [place] [address] PCP - General Family Medicine 01/22/18 02/10/25 Ryan Merritt MD [address] [facility] [place] [address] PCP - General 02/11/25 documented as of this encounter
--- OUTSIDE RECORDS SUMMARY | 2025-03-02 11:04 | XMS_ITS | Clinical Summary ---
Author Organization [facility] Address [address] [place] [address] Care Team Providers Care Sanding Line Operator Name Role Phone Aranza Darling MD Primary Care Provider [phone] Allergies No known active allergies Medications fish oil 340-1,000 mg capsule Take 800 mg by mouth at bed time. Active multivitamin capsule Take 1 capsule by mouth at bed time. Active lactobacillus combination no.4 (Probiotic) 3 billion cell capsule Take by mouth once a day. Active Active Problems Problem Noted Date Diagnosed Date Palpitations 02/03/2023 Assessment & Plan (02/04/2023 11:09 AM EDT): Symptomatic palpitations Triggers: No Chest pain/risk for coronary artery disease: No Exertional symptoms: No Prior medical therapy: Yes: vertigo Prior Monitoring: No Risk for atrial fibrillation: No Syncope: yes, 3 years ago. It was situational because he was in the bathroom Hypertension: No Risk for structural heart disease: low Frequency of symptoms: single episode Orthostatic intolerance: No We discussed about usual benign causes of symptomatic palpitations. Prn beta federico was offered but the patient will like to try the conservative management by eliminating caffeine, cheese, increase fluid intake. 30 day Event monitor for prescribed Recommended symptom diary Echocardiogram to evaluate for structural heart disease Labs ordered: CBC, BMP, morning cortisol, TSH, HbA1c, metanephrines, 5-HIAA, Lyme titer Out patient follow up with cardiology Patient will need vertigo assessment by neurologist and ENT physician as outpatient. Overweight (BMI 25.0-29.9) 04/10/2017 Chronic allergic rhinitis due to pollen 04/10/20 17 GERD (gastroesophageal reflux disease) 7 Vitamin D deficiency 04/10/2017 Multiple dysplastic nevi 04/10/2017 New daily persistent headache 04/10/2017 Screening for cholesterol level 04/10/2017 Flu vaccine need 04/10/2017 Trapezius muscle strain 02/05/2012 Pain, joint, shoulder 01/05/2012 Neck pain 01/05/2012 Immunizations Immunization Administration Dates Next Due Influenza, Injectable, Quadr ivalent, Contains Preservative 04/10/2017 Family History Medical History Relation Name Comments Ulcers Brother Arthritis Father Hypertension Father Lung cancer Maternal Grandmother Breast cancer Mother Rafaela Diabetes Mother Rafaela Hypertension Mother Rafaela Obesity Mother Rafaela Colon cancer Paternal Grandmother Relation Name Status Comments Brother Alive Father Alive Maternal Grandmother ag e 65 Mother Rafaela Alive Breast CA onset age 60 Paternal Grandmother ag e 62 Social History Tobacco Use Types Packs/Day Years Used Date Smoking Tobacco: Former Cigarettes 1 15 1 - 03/2016 Smokeless Tobacco: Never Tobacco Cessation:Ready to Q uit: Yes Comments:smoked intermittently for 11 yrs at most 1 ppd Alcohol Use Standard Drinks/Week Comments Yes 0 (1 standard drink = 0.6 oz pur e alcohol) 1-2 beers monthly Sex and Gender Information Value Date Recorded Sex Assigned at Male 02/12/2021 8:27 PM EDT Legal Sex Male 10:39 AM EDT Gender Identity Male 02/12/2021 8:27 PM EDT Sexual Orientation Straight 02/12/2021 8: 27 PM EDT Last Filed Vital Signs Vital Sign Reading Time Taken Comments Blood Pressure 101/72 02/04/2023 2:36 PM EDT Pulse 78 02/04/2023 2:36 PM EDT Temperature 36.4 C (97.6 F) 02/04/2023 2:36 PM EDT Respiratory Rate 16 02/04/2023 2:36 PM EDT Oxygen Saturation 98% 02/04/2023 2:36 PM EDT Inhaled Oxygen Concentration - - Weight 85.7 kg (189 lb) 03/31/2019 11:03 AM EDT Height 170.2 cm (5' 7 ) 03/31/2019 11:03 AM EDT Body Mass Index 29.6 03/31/2019 11:03 AM EDT Plan of Treatment Health Maintenance Due Date Last Done Comments HIV Screening 1984 Hepatitis C Screening 1984 Varicella Vaccines (2 of 2 - 13+ 2-dose series) 07/23/1997 1997 Hepatitis B Vaccines (1 of 3 - 19+ 3-dose series) 2003 Alcohol/Substance Use Screening 06/22/2024 Depression Screening and Follow-Up 06/22/2024 Social Drivers of Health Annual Screening 06/22/2024 COVID-19 Vaccine ( season) 2025 06/26/2021, 11/07/2020, 10/09/2020 Influenza Vaccine (#1) 2025 , 04/30/2020, 04/12/2019, Additional history exists DTaP,Tdap,and Td Vaccines (3 - Td or Tdap) 04/22/2028 04/22/2018, 2006 RSV Vaccine (60+ years old and patients) (1 - 1-dose 75+ series) 2059 Pneumococcal Vaccine: Pediatric (0-5 Years) and At-Risk Patients (6-50 Years) Aged Out No longer eligible based on patient's age to complete this topic Insurance [facility] HMO/POS Advance Directives * Full Code (Latest Code Status on File) Date Activated Date Inactivated Comments 02/04/2023 1:42 AM 02/04/2023 6:17 PM Care Teams Sanding Line Operator Relationship Specialty Start Date End Date Aranza Darling MD PCP - General Family Medicine 03/31/19
--- OUTSIDE RECORDS SUMMARY | 2025-03-02 11:04 | XMS_ITS | Encounter Summary ---
Author Organization [facility] Address [address] [place] [address] Care Team Providers Care Data Processing Operator Name Role Phone Aranza Darling MD Primary Care Provider [phone] Ryan Merritt MD Primary Care Provider Encounter Details Date Type Department Care Team ([facility] st Contact Info) Description 08/26/2023 Orders Only [facility] Orthopedic Surgery [address] [address] Wesley Triana MD [address] [place] [address] Social History Tobacco Use Types Packs/Day Years [...] on file 02/21 PHQ-2 Answer Date Recorded PHQ-2 Score 2 06/26/2023 PHQ-9 Answer Date Recorded PHQ-9 Score (Major Dep>9, Refer>14) 8 06/26/2023 Intimate Partner Violence Answer Date R ecorded [...] 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 [facility] [address] [place] [address] Carolyn Stearns, HALEY [address] [place] [address] cpe Scheduled Orders Name Type Priority Associated Diagnoses Orde r Schedule XRAY SPINE, CERVICAL; 4 OR 5 VIEWS Imaging Routine Foraminal stenosis of cervical region Expected: 08/26/2023, Expires: 08/25/2026 documented as of this encounter Goals Goal [...] at . Any insurance accepted. Quit smoking resources-[email or web address] documented as of this encounter Visit Diagnoses Diagnosis Foraminal stenosis of cervical region Spinal stenosis in cervical region documented in this encounter Care Teams Data Processing Operator Relationship Specialty Start Date End Date Aranza Darling MD [address] [facility] [place] [address] PCP - General Family Medicine 01/22/18 02/10/25 Ryan Merritt MD [address] [facility] [place] [address] PCP - General 02/11/25 documented as of this encounter
--- OUTSIDE RECORDS SUMMARY | 2025-03-02 11:04 | XMS_ITS | Encounter Summary ---
Author Organization [facility] Address [address] [place] [address] Care Team Providers Care Wood Milling Machine Tender Name Role Phone Aranza Darling MD Primary Care Provider [phone] Ryan Merritt MD Primary Care Provider [phone] Encounter Details Date Type Department Care Team (Late st Contact Info) Description 01/26/[address] 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 [facility] [address] [place] [phone] Carolyn Stearns, ICT ANALYST [address] [place] [address] cpe documented as of this encounter Goals [...] at . Any insurance accepted. Quit smoking resources-[email or web address] documented as of this encounter Procedures * Due to [place] state law, this organization might not be sharing negative HIV tests. Procedure Name Priority Date/Time Associated Diagnosis Comments RHEUMATOID FACTOR, SERUM Routine 019 4:35 PM EDT Stiffness of joints, multiple sites C-REACTIVE PROTEIN (CRP) - INFLAMMATION Routine 01/26/2019 4:35 PM EDT Stiffness of joints, multiple sites LD SCREEN IFA W/REFLEX TO TITER/PATTERN IFA Routine 01/26/2019 4:35 PM EDT Stiffness of joints, multiple sites ERYTHROCYTE SEDIMENTATION RATE (ESR) Routine 01/26/2019 4:35 PM EDT Stiffness of joints, multiple sites CBC INCLUDES DIFFERENTIAL AND PLATELET COUNT Routine 01/26/2019 4:35 PM EDT Fatigue, unspecified type THYROID STIMULATING HORMONE (TSH) WITH FREE T4 REFLEX, SERUM Routine 01/26/2019 4:35 PM EDT Fatigue, unspecified type CYCLIC CITRULLINATEDPEPTIDE CCP AB IGG Routine 01/26/2019 4:35 PM EDT Stiffness of joints, multiple sites COMPREHENSIVE METABOLIC PANEL WITH GFR Routine 01/26/2019 4:35 PM EDT Fatigue, unspecified type documented in this encounter Results * Due to [place] state law, this organization might not be sharing negative HIV tests. * LD SCREEN IFA W/REFLEX TO TITER/PATTERN IFA (01/26/2019 4:35 PM EDT) LD IFA NEGATIVE NEGATIVE [facility] Comment: LD IFA is a first line screen for detecting the presence of up to approximately 150 autoantibodies in various autoimmune diseases. A negative LD IFA result suggests LD-associated autoimmune diseases are not present at this time. Visit Physician FAQs for interpretation of all antibodies in the [place], prevalence, and association with diseases at http://education.Clickyreserva/ faq/QJN991 01/26/2019 4:35 PM EDT 01/27/2019 1:26 AM EDT Narrative Resulting Agency Comment [id number] Aranza Darling MD LABORATORY Final Resu lt Performing Organization Address City/[facility] Co de Phone Number [facility] [address] [place] [address] * RHEUMATOID FACTOR, SERUM (01/26/2019 4:35 PM EDT) Rheumatoid Factor (Quant) <14 <14 IU/mL [facility] 01/26/2019 4:35 PM EDT 01/27/2019 1:26 AM EDT Narrative Resulting Agency Comment [id number] Aranza Darling MD LABORATORY Final Resu lt Performing Organization Address City/[facility] Co de Phone Number [facility] [address] [place] [address] * THYROID STIMULATING HORMONE (TSH) WITH FREE T4 REFLEX, SERUM (01/26/2019 4:35 PM EDT) TSH 2.96 0.40 - 4.50 mIU/L [facility] 01/26/2019 4:35 PM EDT 01/27/2019 1:26 AM EDT Narrative Resulting Agency Comment [id number] Aranza Darling MD LABORATORY Final Resu lt Performing Organization Address [facility] Co de Phone Number [facility] [address] [place] [address] * CYCLIC CITRULLINATEDPEPTIDE CCP AB IGG (01/26/2019 4:35 PM EDT) Pathologist [facility] CCP Ab, IgG <16 UNITS [facility] Comment: Reference Range Negative: <20 Weak Positive: 20-39 Moderate Positive: 40-59 Strong Positive: >59 01/26/2019 4:35 PM EDT 01/27/2019 1:26 AM EDT Narrative Resulting Agency Comment [id number] Aranza Darling MD LABORATORY Final Resu lt Performing Organization Address [facility] de Phone Number [facility] [address] [place] [address] * COMPREHENSIVE METABOLIC PANEL WITH GFR (01/26/2019 4:35 PM EDT) Pathologist [facility] Glucose 82 65 - 99 mg/dL [facility] Comment:Fasting reference in terval Urea Nitrogen Blood (BUN) 14 7 - 25 mg/dL [facility] Creatinine 0.88 0.60 - 1.35 mg/dL [facility] EGFR 112 > OR = 60 mL/min/1 .73m2 [facility] GFR () 130 > OR = 60 mL/min/1 .73m2 [facility] BUN/Creatinine Ratio NOT APPLICABLE 6 - 22 (calc) [facility] Sodium 141 135 - 146 mmol/L [facility] Potassium 4.1 3.5 - 5.3 mmol/L [facility] Chloride 105 98 - 110 mmol/L [facility] Carbon dioxide 27 20 - 32 mmol/L [facility] Calcium 9.6 8.6 - 10.3 mg/dL [facility] Protein Total (Serum) 6.9 6.1 - 8.1 g/dL [facility] Albumin 4.5 3.6 - 5.1 g/dL [facility] Globulin 2.4 1.9 - 3.7 g/dL (calc) [facility] Albumin/Globuli n 1.9 1.0 - 2.5 (calc) [facility] Bilirubin Total 0.5 0.2 - 1.2 mg/dL [facility] Alkaline phosphatase 55 40 - 115 U/L [facility] AST (SGOT) 19 10 - 40 U/L [facility] ALT (SGPT) 23 9 - 46 U/L [facility] 01/26/2019 4:35 PM EDT 01/27/2019 1:26 AM EDT Narrative [facility] - 01/27/2019 4:41 AM EDT Please note that this estimated GFR does [...] needs for GFR calculation. Resulting Agency Comment [id number] us Aranza Darling MD LABORATORY Final Resu lt [facility] [address] [place] [address] * ERYTHROCYTE SEDIMENTATION RATE (ESR), [place]GR[place] (01/26/2019 4:35 PM EDT) Sedimentation Rate [place] (ESR) 2 < OR = 15 mm/h [facility] 01/26/2019 4:35 PM EDT 01/27/2019 1:26 AM EDT Narrative Resulting Agency Comment [id number] us Aranza Darling MD LAB SAME DAY RESULT Final Result Performing Organization Address City/[facility]/ZIP Co de Phone Number [facility] [address] [place] [address] * C-REACTIVE PROTEIN (CRP) - INFLAMMATION (01/26/2019 4:35 PM EDT) C reactive protein 2.6 <8.0 mg/L [facility] 01/26/2019 4:35 PM EDT 01/27/2019 1:26 AM EDT Narrative Resulting Agency Comment [id number] us Aranza Darling MD LABORATORY Final Resu lt Performing Organization Address [facility] Co de Phone Number [facility] [address] [place] [address] * CBC INCLUDES DIFFERENTIAL AND PLATELET COUNT (01/26/2019 4:35 PM EDT) WBC 8.3 3.8 - 10.8 Thousand/u L [facility] RBC 4.80 4.20 - 5.80 Million/uL [facility] Hemoglobin 14.7 13.2 - 17.1 g/dL [facility] Hematocrit 42.4 38.5 - 50.0 % [facility] MCV 88.3 80.0 - 100.0 fL [facility] MCH 30.6 27.0 - 33.0 pg [facility] MCHC 34.7 32.0 - 36.0 g/dL [facility] RDW 12.6 11.0 - 15.0 % [facility] PLT 245 140 - 400 Thousand/u L [facility] MPV 9.7 7.5 - 12.5 fL [facility] Neutrophils # 4582 1500 - 7800 cells/uL [facility] Lymphocytes # 2971 850 - 3900 cells/uL [facility] Monocytes # 656 200 - 950 cells/uL [facility] Eosinophils # 50 15 - 500 cells/uL [facility] Basophils # 42 0 - 200 cells/uL [facility] Neutrophils % 55.2 % [facility] Lymphocytes % 35.8 % [facility] Monocytes % 7.9 % [facility] Eosinophils % 0.6 % [facility] Basophils % 0.5 % [facility] 01/26/2019 4:35 PM EDT 01/27/2019 1:26 AM EDT Narrative Resulting Agency Comment [id number] us Aranza Darling MD LAB SAME DAY RESULT Final Result Performing Organization Address [facility] Co de Phone Number [facility] [address] [place] [address] documented in this encounter Visit Diagnoses Diagnosis Fatigue, unspecified type Stiffness of joints, multiple sites Stiffness of joints, not elsewhere classified, multiple sites documented in this encounter Care Teams Wood Milling Machine Tender Relationship Specialty Start Date End Date Aranza Darling MD [address] [place] [address] PCP - General Family Medicine 01/22/18 02/10/25 Ryan Merritt MD [address] [facility] [place] [address] PCP - General 02/11/25 documented as of this encounter
--- OUTSIDE RECORDS SUMMARY | 2025-03-02 11:04 | XMS_ITS | Encounter Summary ---
Author Organization [facility] Address [address] [place] [address] Care Team Providers Care Wood Patternmaker Apprentice Name Role Phone Aranza Darling MD Primary Care Provider + [phone] Encounter Details Date Type Department Care Team (Late st Contact Info) Description 08/28/2020 Lab Requisition [facility] [address] [place] [address] Elizabeth Geiger, [place] [address] [facility], [address] [place] [address] Dermatitis, unspecified Social History Tobacco Use Types Packs/Day Years Used Date Smoking Tobacco: Former Cigarettes 1 15 1 - 03/2016 Smokeless Tobacco: Never Comments:smoked intermittent ly for 11 yrs at most 1 ppd Alcohol Use Standard Drinks/Week Comments Yes 0 (1 standard drink = 0.6 oz pur e alcohol) 1-2 beers monthly Sex and Gender Information Value Date Recorded Sex Assigned at Male 02/12/2021 8:27 PM EDT Legal Sex Male 10:39 AM EDT Gender Identity Male 02/12/2021 8:27 PM EDT Sexual Orientation Straight 02/12/2021 8: 27 PM EDT documented as of this encounter Plan of Treatment Not on file documented as of this encounter Procedures * Due to [place] state law, this organization might not be sharing negative HIV tests. Procedure Name Priority Date/Time Associated Diagnosis Comments VARICELLA ZOSTER (VZV) CULTURE Routine 08/28/2020 3:30 PM EST Dermatitis, unspecified HERPES SIMPLEX VIRUS CULTURE Routine 08/28/2020 3:30 PM EST Dermatitis, unspecified documented in this encounter Results * Due to [place] state law, this organization might not be sharing negative HIV tests. * Varicella zoster (VZV) Culture (08/28/2020 3:30 PM EST) Source SWAB 09/04/2020 7:56 PM EDT [facility] Varicella Zoster Culture NOT ISOLATED 09/04/2020 7:56 PM EDT [facility] Comment: REFERENCE RANGE: NOT ISOLATED Swab Other / Unknown 08/28/2020 3 :30 PM EST 08/28/2020 3:49 PM EST Narrative [facility] - 09/04/2020 7:56 PM EDT [facility] Received Date: us Elizabeth [facility] MICROBIOLOGY - GENERAL ORDERABLES Final Result Performing Organization Address City/State/[facility] Co de Phone Number ANTHONY NIX [address] [place] [address] 3rd Floor, [place] [address], [place] [phone] [address] [address], [place] [phone] * Herpes Simplex Culture (08/28/2020 3:30 PM EST) Micro Number [id number] 08/30/2020 2:58 PM EST [facility] Specimen Quality Adequate 08/30/2020 2:58 PM EST [facility] Source SWAB OTHER 08/30/2020 2:58 PM EST [facility] Status FINAL 08/30/2020 2:58 PM EST [facility] HSV Culture Not Isolated 08/30/2020 2:58 PM EST [facility] Swab Other / Unknown 08/28/2020 3 :30 PM EST 08/28/2020 3:49 PM EST Narrative [facility] - 08/30/2020 2:58 PM EST [facility] Received Date: us Elizabeth [facility] MICROBIOLOGY - GENERAL ORDERABLES Final Result ANTHONY ALBION [address], [place] [address], [place] [phone] [facility] [address], [place] [address], [place] [phone] documented in this encounter Visit Diagnoses Diagnosis Dermatitis, unspecified documented in this encounter Care Teams Wood Patternmaker Apprentice Relationship Specialty Start Date End Date Aranza Darling MD PCP - General Family Medicine 03/31/19 documented as of this encounter
--- OUTSIDE RECORDS SUMMARY | 2025-03-02 11:04 | XMS_ITS | Encounter Summary ---
Author Organization [facility] Address [address] [place] [address] Care Team Providers Care Jeep Driver Name Role Phone Aranza Darling MD Primary Care Provider [phone] Ryan Merritt MD Primary Care Provider [phone] Reason for Visit * Reason Comments Referral Request Encounter Details Date Type Department Care Team ([facility] st Contact Info) Description 08/26/2024 Telephone [facility] [address] [place] [address] Galindo Mccarthy DPM [address] [place] [id number] Referral Request Social History Tobacco Use Types Packs/Day Years [...] 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 same auth number and have updated the referral shell. Thank you * Telephone Encounter - Mary Liz - 08/29/2024 9:57 AM EDT Emma I'm sorry for the error, I faxed the update to [facility]. I will let you know as soon as I hear back from them * Telephone Encounter - Greer Garcia - 08/29/2024 7:38 AM EDT Could you please change DOS to 08/24/2024 Was requested in previous message * Telephone Encounter - Agusto Mary - 08/26/2024 4:47 PM EST Approved, referral shell updated- please send to PT office * Telephone Encounter - Greer Garcia - 08/26/2024 3:31 PM EST Could you please work on Auth Dr. Mccarthy referred pt to : [facility] Physical therapy NPI; [id number] Dos: 08/24/2024 Dx: Posterior tibial tendinitis of right lower extremity [M76.821] Thank you documented in this encounter Plan of Treatment Upcoming Encounters Date Type Department Care Team (Latest Contact Info) Description 09/21/2025 8:15 AM EDT CPE - Comprehensive Physical Exam [address] [facility] [address] [place] [address] Carolyn Stearns, H[place] [address] [place] [address] cpe documented as of this encounter Goals [...] at . Any insurance accepted. Quit smoking resources-http://makesmokinghistory.org documented as of this encounter Visit Diagnoses Not on filedocumented in this encounter Care Teams Jeep Driver Relationship Specialty Start Date End Date Aranza Darling MD [address] [facility] [place] [address] PCP - General Family Medicine 01/22/18 02/10/25 Ryan Merritt MD [address] [facility] [place] [address] PCP - General 02/11/25 documented as of this encounter
--- OUTSIDE RECORDS SUMMARY | 2025-03-02 11:04 | XMS_ITS | Encounter Summary ---
Author Organization [facility] Address [address] [place] [address] Care Team Providers Care Sheet Sewer Name Role Phone Aranza Darling MD Primary Care Provider [phone] Encounter Details Date Type Department Care Team (Late st Contact Info) Description 02/06/2023 Transcribe Orders [facility] Physician Referral Services [address] [place] [address] Aranza Darling MD [address] [place] [address] Social History Tobacco Use Types Packs/Day Years [...] on file documented as of this encounter Visit Diagnoses Not on filedocumented in this encounter Care Teams Sheet Sewer Relationship Specialty Start Date End Date Aranza Darling MD PCP - General Family Medicine 03/31/19 documented as of this encounter
--- OUTSIDE RECORDS SUMMARY | 2025-03-02 11:04 | XMS_ITS | Encounter Summary ---
Author Organization [facility] Address [address] [place] [address] Care Team Providers Care Pipe Buffer Name Role Phone Aranza Darling MD Primary Care Provider [phone] Ryan Merritt MD Primary Care Provider [phone] Reason for Visit * Reason Comments Cough Shortness of Breath Encounter Details Date Type Department Care Team (Late st Contact Info) Description 10/11/[address] 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 Date Time Provider Department Phone 10/11/18 4:[address] [facility] Practice [phone] Disease Management Program Membership: None Chief complaint: Patient, Isaiah Macias 33 y.o. male calling with complaints of cough. Onset: 8 days Emergent symptoms: denies chest pain, sudden SOB, wheezing, retractions, choking, stridor, drooling, cyanosis, and frothy sputum. Fever: not elevated Travel: Have you traveled outside the [place] within the last 3 weeks? No Associated symptoms/ROS: cough- Dry, wheezing at night. Coughing fit all night- cant sleep no matter what position he is in or what he takes for medicine Pertinent Hx: Hx of pneumonia. Occasional episodes of bronchitis. Have you received a flu shot this year? not asked New Allergies/Current Allergies: Review of patient's allergies indicates no known allergies. Current home Tx: OTC medication- Alleve, decongestant, cough suppressant and Nyquil/Dayquil/mucinex/delsym Effectiveness of home Tx: not very effective * Telephone Encounter - Minal Thomas - 10/11/2018 9:04 AM EDT Pt is calling stating that he has had a cough for the past 8 days and hes very SOB. LT documented in this encounter Plan of Treatment Upcoming Encounters Date Type Department Care Team (Latest Contact Info) Description 09/21/2025 8:15 AM EDT CPE - Comprehensive Physical Exam [address] [facility] [address] [place] [id number] Carolyn Stearns NP [address] [place] [address] cpe documented as of this encounter Goals [...] at . Any insurance accepted. Quit smoking resources-http://[email or web address] documented as of this encounter Visit Diagnoses Not on filedocumented in this encounter Care Teams Pipe Buffer Relationship Specialty Start Date End Date Aranza Darling MD [address] [place] [address] PCP - General Family Medicine 01/22/18 02/10/25 Ryan Merritt MD [address] [facility] [place] [address] PCP - General 02/11/25 documented as of this encounter
--- OUTSIDE RECORDS SUMMARY | 2025-03-02 11:04 | XMS_ITS | Encounter Summary ---
Author Organization [facility] Address [address] [place] [address] Care Team Providers Care Raker Buffing Wheel Name Role Phone Aranza Darling MD Primary Care Provider [phone] Encounter Details Date Type Department Care Team (Late st Contact Info) Description 08/28/2020 Lab Requisition [facility] [address] [place] [address] Elizabeth Geiger, [place] [address] [facility], [address] [place] [address] Dermatitis, unspecified Social History Tobacco Use Types [...] Procedure Name Priority Date/Time Associated Diagnosis Comments AEROBIC CULTURE W/GRAM STAIN Routine 08/28/2020 3:30 PM EST Dermatitis, unspecified documented in this encounter Results * Due to [place] state law, this organization might not be sharing negative HIV tests. * Aerobic Culture w/Gram Stain (08/28/2020 3:30 PM EST) Wound Culture Heavy Growth BIOMERIEUX VITEK2 COMPACT 09/01/2020 10:07 AM EST [facility] Comment:Mixed gram positive organisms resembling normal skin maty at 72 hours. Gram Stain Result No White Blood Cells Seen 09/01/2020 10:07 AM EST [facility] LEBeijing kongkong technologyTER LABORATORY Gram Stain Result Few Epithelial Cells 09/01/2020 10:07 AM EST [facility] LEOMServiceMaxTER LABORATORY Gram Stain Result No Organisms Seen 09/01/2020 10:07 AM EST [facility] Skin Other / Unknown 08/28/2020 3 :30 PM EST 08/28/2020 3:53 PM EST us Elizabeth [facility] MICROBIOLOGY - GENERAL ORDERABLES Final Result [facility] [address] [place] [address], documented in this encounter Visit Diagnoses Diagnosis Dermatitis, unspecified documented in this encounter Care Teams Raker Buffing Wheel Relationship Specialty Start Date End Date Aranza Darling MD PCP - General Family Medicine 03/31/19 documented as of this encounter
--- OUTSIDE RECORDS SUMMARY | 2025-03-02 11:04 | XMS_ITS | Encounter Summary ---
Author Organization [facility] Address [address] [place] [address] Care Team Providers Care Drywall Mechanic Name Role Phone Aranza Darling MD Primary Care Provider [phone] Ryan Merritt MD Primary Care Provider [phone] Encounter Details Date Type Department Care Team (Late st Contact Info) Description 11/25/[address] 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 [facility] [address] [place] [address] Carolyn Stearns NP [address] [place] [address] cpe documented as of this encounter Goals [...] at . Any insurance accepted. Quit smoking resources-http://Resource [email or web address] documented as of this encounter Visit Diagnoses Not on filedocumented in this encounter Care Teams Drywall Mechanic Relationship Specialty Start Date End Date Aranza Darling MD [address] [place] [address] PCP - General Family Medicine 01/22/18 02/10/25 Ryan Merritt MD [address] [place] [address] PCP - General 02/11/25 documented as of this encounter
--- OUTSIDE RECORDS SUMMARY | 2025-03-02 11:04 | XMS_ITS | Encounter Summary ---
Author Organization [facility] Address [address] [place] [address] Care Team Providers Care Extruder Operator Name Role Phone Deepti Bethn Primary Care Provider [phone] Aranza Darling MD Primary Care Provider [phone] Ryan Merritt MD Primary Care Provider [phone] Encounter Details Date Type Department Care Team (Late st Contact Info) Description 07/05/2013 [facility] Only [facility] Orthopedic Surgery [address] [facility] [address] [place] [address] Murali Friedman MD [address] [facility] [address] [place] [address] Social History Tobacco Use Types Packs/Day Years Used Date Smoking Tobacco: Never Assessed Sex and Gender Information Value Date Recorded Sex Assigned at Male 06/03/2021 8:41 AM EST Legal Sex Male 11:16 PM EDT Gender Identity Male 06/03/2021 8:41 AM EST Sexual Orientation Straight 06/03/2021 8: 41 AM EST documented as of this encounter Plan of Treatment Upcoming Encounters Date Type Department Care Team (Latest Contact Info) Description 09/21/2025 8:15 AM EDT CPE - Comprehensive Physical Exam [address] [facility] [address] [place] [phone] Carolyn Stearns NP [address] [place] [address] cpe documented as of this encounter Results * Due to [place] state law, this organization might not be sharing negative HIV tests. * XRAY SHOULDER COMPLETE MIN 2 VWS - BILAT FC (07/12/2013 3:48 PM EST) Anatomical Region Laterality Modality UPPER EXTREMITY Radiographic Shital ging 07/14/2013 11:2 8 AM EST Narrative 07/14/2013 11:28 AM EST XRAY SHOULDER COMPLETE MIN 2 VWS - BILAT FC 3 views of each shoulder, 6 views total Clinical history: bilat shoulder pain FINDINGS: No fracture or subluxation. IMPRESSION: No fracture or dislocation seen. Procedure Note Vandana Amado MD - 07/14/2013 XRAY SHOULDER COMPLETE MIN 2 VWS - BILAT FC 3 views of each shoulder, 6 views total Clinical history: bilat shoulder pain FINDINGS: No fracture or subluxation. IMPRESSION: No fracture or dislocation seen. us Murali Friedman MD IMG XRAY NO CONTRAST ORDERAB LES Final Result documented in this encounter Visit Diagnoses Diagnosis Bilateral shoulder pain- Primary Pain in joint, shoulder region Bilateral shoulder pain Pain in joint, shoulder region documented in this encounter Care Teams Extruder Operator Relationship Specialty Start Date End Date Hany Beth [facility] [address] PCP - General Family Medicine 08/01/13 01/21/18 Aranza Darling MD [address] [place] [address] PCP - General Family Medicine 01/22/18 02/10/25 Ryan Merritt MD [address] [place] [address] PCP - General 02/11/25 documented as of this encounter
--- OUTSIDE RECORDS SUMMARY | 2025-03-02 11:04 | XMS_ITS | Encounter Summary ---
Author Organization [facility] Address [address] [place] [address] Care Team Providers Care Hog Trader Name Role Phone Ryan Merritt MD Primary Care Provider [phone] Reason for Referral * (Within 1 Month) Specialty Diagnoses / Procedures Referred By Fidencio miller Referred To Contact Orthopedics Diagnoses Protruded cervical disc Liv Hunter PA [address] [address] Phone: tel: fax: Referral ID Status Reason Start Date Expiration Date Visits Re quested Visits Authorized Scheduling Instructions [facility], Musculoskeletal Department Please call [phone] and/or [id number] to book appointment Question Answer Reason for referral and relevant patient history/tests: . Track Order? No tracking Encounter Details Date Type Department Care Team (Late st Contact Info) Description 02/23/2025 Results Follow-Up [address] 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 documented in this encounter Plan of Treatment Upcoming Encounters Date Type Department Care Team (Latest Contact Info) Description 09/21/2025 8:15 AM EDT CPE - Comprehensive Physical Exam [address] [facility] [address] [place] [address] Carolyn Stearns NP [address] [place] [address] cpe Scheduled Referrals Name Type Priority Associated Diagnoses Orde r Schedule CONSULT [facility] (ORTHOPEDICS) Referral Prioritized (2-4 weeks or sooner if available) Protruded cervical disc Ordered: 02/23/2025 documented as of this encounter Goals Goal [...] at . Any insurance accepted. Quit smoking resources-[email or web address] documented as of this encounter Visit Diagnoses Diagnosis Protruded cervical disc Displacement of cervical intervertebral disc without myelopathy Neck pain Cervicalgia documented in this encounter Care Teams Hog Trader Relationship Specialty Start Date End Date Ryan Merritt MD [address] [place] [address] PCP - General 02/11/25 documented as of this encounter
--- OUTSIDE RECORDS SUMMARY | 2025-03-02 11:04 | XMS_ITS | Encounter Summary ---
Author Organization [facility] Address [address] [place] [address] Care Team Providers Care Supervisor Paper Products Name Role Phone Aranza Darling MD Primary Care Provider [phone] Ryan Merritt MD Primary Care Provider [phone] Encounter Details Date Type Department Care Team (Late st Contact Info) Description 08/30/[address] 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 [facility] [address] [place] [phone] Carolyn Stearns, HALEY [address] [place] [address] cpe documented as of this encounter Goals [...] at . Any insurance accepted. Quit smoking resources-[email or web address] documented as of this encounter Procedures * Due to [place] nxtControl law, this organization might not be sharing negative HIV tests. Procedure Name Priority Date/Time Associated Diagnosis Comments CBC INCLUDES DIFFERENTIAL AND PLATELET COUNT Routine 08/30/2018 12:06 PM EDT Diarrhea, unspecified type LIPASE, SERUM Routine 08/30/2018 12:06 PM EDT Abdominal discomfort in left upper quadrant AMYLASE, SERUM Routine 08/30/2018 12:06 PM EDT Abdominal discomfort in left upper quadrant COMPREHENSIVE METABOLIC PANEL WITH GFR Routine 08/30/2018 12:06 PM EDT Diarrhea, unspecified type documented in this encounter Results * Due to [place] nxtControl law, this organization might not be sharing negative HIV tests. * (ABNORMAL) LIPASE, SERUM (08/30/2018 12:06 PM EDT) Lipase 5(L) 7 - 60 U/L [facility] 08/30/2018 12:0 6 PM EDT 08/30/2018 8:47 PM EDT Narrative Resulting Agency Comment [id number] us Aranza Darling MD LABORATORY Final Resu lt Performing Organization Address [facility]/ZIP Co de Phone Number [facility] [address] [place] [address] * (ABNORMAL) AMYLASE, SERUM (08/30/2018 12:06 PM EDT) Amylase 11(L) 21 - 101 U/L [facility] 08/30/2018 12:0 6 PM EDT 08/30/2018 8:47 PM EDT Narrative Resulting Agency Comment [id number] us Aranza Darling MD LAB SAME DAY RESULT Final Result Performing Organization Address [facility] de Phone Number [facility] [address] [place] [address] * COMPREHENSIVE METABOLIC PANEL WITH GFR (08/30/2018 12:06 PM EDT) Glucose 89 65 - 99 mg/dL [facility] Comment:Fasting reference in terval Urea Nitrogen Blood (BUN) 10 7 - 25 mg/dL [facility] Creatinine 0.87 0.60 - 1.35 mg/dL [facility] EGFR 113 > OR = 60 mL/min/1 .73m2 [facility] GFR () 131 > OR = 60 mL/min/1 .73m2 [facility] BUN/Creatinine Ratio NOT APPLICABLE 6 - 22 (calc) [facility] Sodium 139 135 - 146 mmol/L [facility] Potassium 4.5 3.5 - 5.3 mmol/L [facility] Chloride 103 98 - 110 mmol/L [facility] Carbon dioxide 28 20 - 32 mmol/L [facility] Calcium 9.3 8.6 - 10.3 mg/dL [facility] Protein Total (Serum) 7.0 6.1 - 8.1 g/dL [facility] Albumin 4.7 3.6 - 5.1 g/dL [facility] Globulin 2.3 1.9 - 3.7 g/dL (calc) [facility] Albumin/Globuli n 2.0 1.0 - 2.5 (calc) [facility] Bilirubin Total 0.8 0.2 - 1.2 mg/dL [facility] Alkaline phosphatase 56 40 - 115 U/L [facility] AST (SGOT) 28 10 - 40 U/L [facility] ALT (SGPT) 36 9 - 46 U/L [facility] 08/30/2018 12:0 6 PM EDT 08/30/2018 8:47 PM EDT Narrative [facility] - 08/30/2018 11:11 PM EDT Please note that this estimated GFR [...] needs for GFR calculation. Resulting Agency Comment [id number] us Aranza Darling MD LABORATORY Final Resu lt Performing Organization Address City/State/RUST Co de Phone Number [facility] [address] [place] [address] * CBC INCLUDES DIFFERENTIAL AND PLATELET COUNT (08/30/2018 12:06 PM EDT) WBC 5.2 3.8 - 10.8 Thousand/u L [facility] RBC 5.04 4.20 - 5.80 Million/uL [facility] Hemoglobin 15.3 13.2 - 17.1 g/dL [facility] Hematocrit 42.9 38.5 - 50.0 % [facility] MCV 85.1 80.0 - 100.0 fL [facility] MCH 30.4 27.0 - 33.0 pg [facility] MCHC 35.7 32.0 - 36.0 g/dL [facility] RDW 12.7 11.0 - 15.0 % [facility] PLT 200 140 - 400 Thousand/u L [facility] MPV 9.5 7.5 - 12.5 fL [facility] Neutrophils # 2538 1500 - 7800 cells/uL [facility] Lymphocytes # 2106 850 - 3900 cells/uL [facility] Monocytes # 504 200 - 950 cells/uL [facility] Eosinophils # 31 15 - 500 cells/uL [facility] Basophils # 21 0 - 200 cells/uL [facility] Neutrophils % 48.8 % [facility] Lymphocytes % 40.5 % [facility] Monocytes % 9.7 % [facility] Eosinophils % 0.6 % [facility] Basophils % 0.4 % [facility] 08/30/2018 12:0 6 PM EDT 08/30/2018 8:47 PM EDT Narrative Resulting Agency Comment [id number] us Aranza Darling MD LAB SAME DAY RESULT Final Result Performing Organization Address City/State/[place] Co de Phone Number [facility] [address] [place] [address] documented in this encounter Visit Diagnoses Diagnosis Diarrhea, unspecified type Abdominal discomfort in left upper quadrant Abdominal pain, left upper quadrant documented in this encounter Care Teams Supervisor Paper Products Relationship Specialty Start Date End Date Aranza Darling MD [address] [place] [address] PCP - General Family Medicine 01/22/18 02/10/25 Ryan Merritt MD [address] [place] [address] PCP - General 02/11/25 documented as of this encounter
--- OUTSIDE RECORDS SUMMARY | 2025-03-02 11:04 | XMS_ITS | Encounter Summary ---
Author Organization [facility] Address [address] [place] [address] Care Team Providers Care Manager Ui Name Role Phone Aranza Darling MD Primary Care Provider [phone] Ryan Merritt MD Primary Care Provider [phone] Encounter Details Date Type Department Care Team ([facility] st Contact Info) Description 11/05/2023 Orders Only [facility] Orthopedic Surgery [address] [facility] [address] [place] [address] Desmond Morales PA [address] [facility] [address] [place] [address] Social History Tobacco Use Types Packs/Day Years [...] 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 [facility] [address] [address] Carolyn Stearns, HALEY [address] [address] cpe documented as of this encounter Goals [...] at . Any insurance accepted. Quit smoking resources-[email or web address] documented as of this encounter Results * Due to [place] state law, this organization might not be sharing negative HIV tests. * XRAY KNEE FOR ORTHO - RIGHT (11/05/2023 4:39 PM EDT) Anatomical Region Laterality Modality LOWER EXTREMITY Radiographic Shital ging 11/08/2023 4:05 PM EDT Narrative 11/08/2023 4:05 PM EDT Patient History: right knee pain CONTRAST: AP standing view of both knees and 2 additional views of the right knee. Comparison: None Findings: Bones intact. No dislocations. There is medial compartment joint space narrowing bilaterally, [id number]-left. No joint effusion. No radiopaque foreign body. IMPRESSION: 1. No acute findings. 2. Medial compartment narrowing bilaterally. Procedure Note Gustavo Fowler MD - 11/08/2023 Patient History: right knee pain CONTRAST: AP standing view of both knees and 2 additional views of the right knee. Comparison: None Findings: Bones intact. No dislocations. There is medial compartment joint space narrowing bilaterally,[id number]-left. No joint effusion. No radiopaque foreign body. IMPRESSION: 1. No acute findings. 2. Medial compartment narrowing bilaterally. Desmond VITAL IMG XRAY NO CONTRAST ORDERABL ES Final Result documented in this encounter Visit Diagnoses Diagnosis Right knee pain, unspecified chronicity- Primary Right knee pain, unspecified chronicity documented in this encounter Care Teams Manager Ui Relationship Specialty Start Date End Date Aranza Darling MD [address] [place] [address] PCP - General Family Medicine 01/22/18 02/10/25 Ryan Merritt MD [address] [facility] [place] [address] PCP - General 02/11/25 documented as of this encounter
--- OUTSIDE RECORDS SUMMARY | 2025-03-02 11:04 | XMS_ITS | Encounter Summary ---
Author Organization [facility] Address [address] [place] [address] Care Team Providers Care Bungy Jump Master Name Role Phone Aranza Darling MD Primary Care Provider [phone] Encounter Details Date Type Department Care Team (Late st Contact Info) Description 04/15/2017 [employer] Message [address] [phone] Labor Economist: Aranza Nielson MD [address] [place] [id number] Test Results Question Social History Tobacco Use Types Packs/Day Years Used Date Smoking Tobacco: Former Cigarettes Q uit: 03/2016 Smokeless Tobacco: Never Comments:smoked intermittent ly [...] on filedocumented in this encounter Care Teams Bungy Jump Master Relationship Specialty Start Date End Date Aranza Darling MD PCP - General Family Medicine 03/31/19 documented as of this encounter
--- OUTSIDE RECORDS SUMMARY | 2025-03-02 11:04 | XMS_ITS | Clinical Summary ---
Author Organization [facility] Address [address] [place] [address] Phone Care Team Providers Care Extractive Metallurgist Name Role Phone Aranza Darling MD Primary Care Provider [phone] Allergies No known active allergies Medications No known medications Active Problems No known active problems Social History Tobacco Use Types Packs/Day Years Used Date Smoking Tobacco: Never Assessed Education Answer Date Recorded Are you interested in more education? Not on georgina e 05/11/2023 Are you concerned about learning? Not on file 05/11/2023 No 05/11/2023 No 05/11/2023 Digital Access Answer Date Recorded No 05/11/2023 No 05/11/2023 Reliable internet access at home? Not on file 05/11/2023 Device with a working camera? Not on file Sex and Gender Information Value Date Recorded Sex Assigned at Male 08/12/2023 5:54 AM EST Legal Sex Male 8:28 AM EST Gender Identity Male 08/12/2023 5:54 AM EST Sexual Orientation Straight 08/12/2023 5: 54 AM EST Plan of Treatment Upcoming Encounters Date Type Department Care Team (Late st Contact Info) Description 08/23/2025 8:15 AM EST [facility] [address] [facility] [address] [place] [phone] Jonnathan Rojas MD [address] [place] [address] Health Maintenance Due Date Last Done Comments LIPID PANEL 1984 DEPRESSION SCREENING 1996 SMOKING Hx and SMOKELESS TOB ACCO SCREENING 1997 HEPATITIS C SCREENING 2002 HIV ONE-TIME SCREENING (18-6 5 YEARS) 2002 INFLUENZA VACCINE (#1) 2025 05/09/2023 COVID-19 VACCINE (1 - 2023-2 5 season) 2025 Adult Td,Tdap Booster 04/22/2028 04/22/2018 HEPATITIS A VACCINES Aged Out No long er eligible based on patient's age to complete this topic HIB VACCINES Aged Out No longer eligi ble based on patient's age to complete this topic MENINGOCOCCAL VACCINES (ACWY) Aged Out No longer eligible based on patient's age to complete this topic MENINGOCOCCAL VACCINES (B) Aged Out N o longer eligible based on patient's age to complete this topic PNEUMOCOCCAL VACCINES (0-49 years) Aged Out No longer eligible based on patient's age to complete this topic Medical Devices Not on file Insurance [facility] Care Teams Extractive Metallurgist Relationship Specialty Start Date End Date Aranza Darling MD [address] [place] [address] PCP - General 05/11/23 Additional Source Comments The information contained in this document represents components of the legal health record. It is not the complete legal health record.[facility]
--- OUTSIDE RECORDS SUMMARY | 2025-03-02 11:04 | XMS_ITS | Encounter Summary ---
Author Organization [facility] Address [address] [place] [address] Care Team Providers Care Systems Integration Manager Name Role Phone Aranza Darling MD Primary Care Provider [phone] Ryan Merritt MD Primary Care Provider [phone] Encounter Details Date Type Department Care Team (Late st Contact Info) Description 05/31/[address] 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 [facility] [address] [place] [phone] Carolyn Stearns, HALEY [address] [place] [address] cpe documented as of this encounter Goals [...] at . Any insurance accepted. Quit smoking resources-[email or web address] documented as of this encounter Procedures * Due to [place] CareShare law, this organization might not be sharing negative HIV tests. Procedure Name Priority Date/Time Associated Diagnosis Comments LIPID PANEL WITH REFLEX TO DIRECT LDL Routine 05/31/2018 8:07 AM EST Screening for hyperlipidemia documented in this encounter Results * Due to [place] CareShare law, this organization might not be sharing negative HIV tests. * (ABNORMAL) LIPID PANEL WITH REFLEX TO DIRECT LDL (05/31/2018 8:07 AM EST) Cholesterol 195 <200 mg/dL [facility] HDL Cholesterol 72 >40 mg/dL [facility] Triglyceride 58 <150 mg/dL [facility] LDL Cholesterol 109(H) mg/dL (calc) [facility] Comment: Reference range: <100 Desirable range <100 mg/dL for primary prevention; <70 mg/dL for patients with CHD or diabetic patients with > or = 2 CHD risk factors. LDL-C is now calculated using the All-Samuel calculation, which is a validated novel method providing better accuracy than the Friedewald equation in the estimation of LDL-C. All SS et al. NIURKA. 2013;310(19): 9192-5606 (http://education.Beauty Noted/faq/TID891) CHOL/HDL Ratio 2.7 <5.0 (calc) [facility] Cholesterol Non-HDL 123 <130 mg/dL (calc) [facility] Comment: For patients with diabetes plus 1 major ASCVD risk factor, treating to a non-HDL-C goal of <100 mg/dL (LDL-C of <70 mg/dL) is considered a therapeutic option. 05/31/2018 8:07 AM EST 05/31/2018 1:44 PM EST Narrative Resulting Agency Comment [id number] us Aranza Darlign MD LABORATORY Final Resu lt [facility] [address] [place] [address] documented in this encounter Visit Diagnoses Diagnosis Screening for hyperlipidemia Screening for lipoid disorders documented in this encounter Care Teams Systems Integration Manager Relationship Specialty Start Date End Date Aranza Darling MD [address] [facility] [place] [address] PCP - General Family Medicine 01/22/18 02/10/25 Ryan Merritt MD [address] [place] [address] PCP - General 02/11/25 documented as of this encounter
--- OUTSIDE RECORDS SUMMARY | 2025-03-02 11:04 | XMS_ITS | Encounter Summary ---
Author Organization [facility] Address [address] [place] [address] Care Team Providers Care Healthcare Interpreter Name Role Phone Aranza Darling MD Primary Care Provider [phone] Ryan Merritt MD Primary Care Provider [phone] Encounter Details Date Type Department Care Team (Late st Contact Info) Description 02/25/[address] 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 [facility] [address] [place] [address] Carolyn Stearns NP [address] [place] [address] cpe documented as of this encounter Goals [...] at . Any insurance accepted. Quit smoking resources-[email or web address] documented as of this encounter Visit Diagnoses Diagnosis Hand numbness Disturbance of skin sensation documented in this encounter Care Teams Healthcare Interpreter Relationship Specialty Start Date End Date Aranza Darling MD [address] [place] [address] PCP - General Family Medicine 01/22/18 02/10/25 Ryan Merritt MD [address] [place] [address] PCP - General 02/11/25 documented as of this encounter
== END 2025-03-02 11:00 | disposition home or self-care (01) ==
LOC: HO.HNS 09:31
PROVIDERS: Visit Provider Physician Assistant
DX: M54.12 Radiculopathy, cervical region (principal)
CPT/HCPCS: 99204